=== PATIENT | female | born 1965 | race Caucasian/White ===

== ENCOUNTER 2016-07-19 14:49 | Emergency (ER) | payer OTHER ==
[~2016-07-19] VITALS: Ht 160 cm; Wt 86.2 kg
[~2016-07-19 14:49] MED LIST: DIABETA5 M1 PO; DOC-Q-LACE100 M1 PO; DOC-Q-LACE100 MG PO; GEMFIBROZIL600 M1 PO; GLIPIZIDE5 MG PO; HYDROCHLOROTHIA25 MG PO; JANUVIA100 MG PO; LEVOTHYROXIN0.025 M3 PO; LISINOPRIL20 M1 PO; METFORMIN500 MG PO; METHYLDOPA250 M1 PO; ORETIC25 MG PO
[2016-07-19 15:05] VITALS: BP 124/78
--- NOTE | 2016-07-19 16:00 | NUR ---
PATIENT TO ER BED 2.
--- NOTE | 2016-07-19 16:02 | NUR ---
Patient being evaluated by physician at bedside.
[2016-07-19] MEDS ORDERED: ACETAMINOPHEN EXTRA STRENGTH 500 MG TAB PO ONE (16:05)
[2016-07-19] MEDS ORDERED: KETOROLAC 60 MG/2 ML VIAL IM ONE (16:05)
--- NOTE | 2016-07-19 16:06 | NUR ---
PATIENT PRESENTS TO ED WITH PT C/O DIFFUSE BACK PAIN 02/13. DENIES N/V/D; SKIN IS PINK/WARM/DRY; AAOX4 WITH EVEN AND STEADY GAIT; LUNGS CLEAR BL; HR EVEN AND REGULAR; PT DENIES ANY FEVER, CP, SOB, OR COUGH AT THIS TIME; PATIENT STATES PAIN OF 10/10 AT THIS TIME; VSS; PATIENT POSITIONED FOR COMFORT; HOB ELEVATED; BEDRAILS UP X2; BED DOWN. ER MD MADE AWARE OF PT STATUS.
--- NOTE | 2016-07-19 17:05 | NUR ---
Patient discharged with v/s stable. Written and verbal after care instructions given and explained. Patient alert, oriented and verbalized understanding of instructions. Ambulatory with steady gait. All questions addressed prior to discharge. ID band removed. Patient advised to follow up with PMD. Rx of NORCO 5 -325MG, MOTRIN given. Patient educated on indication of medication including possible reaction and side effects. Opportunity to ask questions provided and answered.
[2016-07-19 17:10] VITALS: BP 122/70
== END 2016-07-19 17:05 | disposition home or self-care (01) ==
LOC: MED 14:49
DX: M54.5 Low back pain (principal); E11.9 Type 2 diabetes mellitus without complications; I10 Essential (primary) hypertension; E03.9 Hypothyroidism, unspecified; Z79.899 Other long term (current) drug therapy
CPT/HCPCS: 72080; 96372; 99284; J1885

== ENCOUNTER 2016-09-11 09:09 | Emergency (ER) | payer OTHER ==
[~2016-09-11] VITALS: Ht 160 cm; Wt 83.5 kg
[2016-09-11 09:25] VITALS: BP 137/79
--- NOTE | 2016-09-11 09:31 | NUR ---
Patient ambulated to bed 4. RN evaluating patient at bedside.
--- NOTE | 2016-09-11 09:38 | NUR ---
PT CAME TO ER DUE TO FEVER STARTING LAST NIGHT WITH VOMITING AND PAIN UPON URINATION;W/ BODYACHE;PAIN SCALE OF 10/10;DENIES SOB;AAOX4;NO ACUTE DISTRESS NOTED AT THIS TIME;NEEDS ATTENDED;SAFETY MEASURES DONE;HOB ELEVATED;POSITIONED FOR COMFORT;ALL MONITORS IN PLACED;
[2016-09-11] MEDS ORDERED: ACETAMINOPHEN 325 MG TAB PO ONE (10:00)
--- NOTE | 2016-09-11 10:00 | NUR ---
Dr. Pearce evaluating patient at bedside.
--- NOTE | 2016-09-11 10:15 | NUR ---
COOLING MEASURES DONE.
--- NOTE | 2016-09-11 10:25 | NUR ---
XRAY AT BEDSIDE.
--- NOTE | 2016-09-11 10:39 | NUR ---
DR SILVA AT BEDSIDE.
--- NOTE | 2016-09-11 10:53 | NUR ---
Patient discharged with v/s stable. Written and verbal after care instructions given and explained. Patient alert, oriented and verbalized understanding of instructions. Ambulatory with steady gait. All questions addressed prior to discharge. ID band removed. Patient advised to follow up with PMD. Rx of ZOFRAN,DEXTROMETHORPHAN AND TYLENOL given. Patient educated on indication of medication including possible reaction and side effects. Opportunity to ask questions provided and answered.ADBVISED PT TO DO A TSB TO REDUCED FEVER AND INCREASE FLUID INTAKE.
[2016-09-11 10:58] VITALS: BP 138/86
== END 2016-09-11 10:53 | disposition home or self-care (01) ==
LOC: MED 09:09
DX: B34.9 Viral infection, unspecified (principal); E11.9 Type 2 diabetes mellitus without complications; I10 Essential (primary) hypertension; E78.5 Hyperlipidemia, unspecified; E03.9 Hypothyroidism, unspecified
CPT/HCPCS: 36415; 71010; 82948; 87804; 99285; Q0092